=== PATIENT | male | born 1950 | race Caucasian/White ===

== ENCOUNTER → 2017-01-11 | Outpatient (CLI) | payer MEDICARE, BC, OTHER ==
[2017-01-11 08:03] LABS: EKG EKG PERFORMED
[2017-01-11 08:32] LABS: CH 31.6; CHCM 33.9; HCT 45.2 % (39.0-53.0); HDW 2.46; MCH 31.1 pg (25.0-35.0); MCHC 33.3 g/dL (31.0-37.0); MCV 93.6 fL (80.0-100.0); Mean Platelet Volume 6.9; RBC 4.83 m/uL (4.30-5.90); RDW 13.4 % (11.5-15.5)
[2017-01-11 08:41] LABS: INR 1.1 (<1.1); Partial Thromboplastin Time 24.3 sec (22.0-30.0); Prothrombin Time 11.2 sec (9.0-12.0)
[2017-01-11 08:42] LABS: ALT 29 U/L (21-72); AST 24 U/L (17-59); Alkaline Phosphatase 56 U/L (38-126); Anion Gap 8 mmol/L; Blood Urea Nitrogen 16 mg/dL (9-20); Calcium 9.2 mg/dL (8.4-10.2); Carbon Dioxide 28 mmol/L (22-30); Chloride 106 mmol/L (98-107); Glucose 93 mg/dL (74-99); Non-African American GFR(MDRD) >60 (>60 ml/min/1.73 sqM); Potassium 4.4 mmol/L (3.5-5.1); Sodium 142 mmol/L (137-145); Total Bilirubin 0.7 mg/dL (0.2-1.3); Total Protein 6.4 g/dL (6.3-8.2)
[2017-01-11 09:30] LABS: Appearance,Urine Clear (Clear); Bilirubin,Urine Negative (Negative); Glucose,Urine (UA) Negative (Negative); Ketones,Urine Negative (Negative); Leukocyte Esterase,Urine Negative (Negative); Mucus,Urine Few /hpf; Nitrite,Urine Negative (Negative); Particle Count 4023; Protein,Urine Trace (Negative); RBC,Urine 10 /hpf (0-5); Specific Gravity,Urine 1.022 (1.001-1.035); UA Billing (MACRO vs. MICRO) MICRO; Urobilinogen,Urine <2.0 mg/dL (<2.0); WBC,Urine 1 /hpf (0-5)
== END ==
LOC: LABWHC1 07:18
PROVIDERS: ATTEND Orthopaedic Surgery
DX: Z01.818 Encounter for other preprocedural examination (principal); Z79.01 Long term (current) use of anticoagulants
CPT/HCPCS: 36415; 80053; 81001; 85027; 85610; 85730; 86850; 86900; 86901; 87070; 93005

== ENCOUNTER 2017-01-23 07:18 | Inpatient (IN) | payer MEDICARE, BC, OTHER ==
[2017-01-18 15:25] VITALS: BMI 30.1
[~2017-01-23 07:18] MED LIST: ACETAMINOPHEN TAB 500 MG TAB PO ONE; DEXAMETHASONE SOD PHOSPHATE 10 MG/ML 1 ML VIAL IV ONE; HYDROmorphone 1 MG/ML 1 ML SYRINGE IVP PRN; MELOXICAM 7.5 MG TAB PO ONE; ONDANSETRON 4 MG/2 ML VIAL IVP ONE; TRANEXAMIC ACID 1,000 MG in SODIUM CHLORIDE 0.9% 100 ML IVPB ONE; ceFAZolin 2 GM in SODIUM CHLORIDE 0.9% 100 ML IVPB ONE
[2017-01-23] MEDS ORDERED: LIDOCAINE 1% 20 ML VIAL (10MG/ML) FOR IV START INTRADERMA ONE (08:13)
[2017-01-23] MEDS: LACTATED RINGERS 1,000 ML IV SCH (08:14)
[2017-01-23] MEDS ORDERED: PROPOFOL 10 MG/ML 20 ML VIAL IV ONE (09:36)
[2017-01-23] MEDS ORDERED: SODIUM CHLORIDE 0.9% 100 ML BAG ONE (09:36)
[2017-01-23] MEDS ORDERED: PHENYLEPHRINE-0.9% NACL SYG 1 MG/10 ML SYRINGE ONE (09:36)
[2017-01-23] MEDS ORDERED: MIDAZOLAM 2 MG/2 ML VIAL ONE (09:36)
[2017-01-23] MEDS ORDERED: fentaNYL (PF) 50 MCG/ML 2 ML AMP ONE (09:36)
[2017-01-23] MEDS ORDERED: SODIUM CHLORIDE 0.9% IRRIG 1,000 ML BTL IRRIGATION ONE (09:36)
[2017-01-23] MEDS ORDERED: HEPARIN SODIUM,PORCINE 10,000 UNIT/ML 1 ML VIAL ONE (09:36)
[2017-01-23] MEDS ORDERED: ceFAZolin 3,000 MG in SODIUM CHLORIDE 0.9% IRRIGATIO 3,000 ML IRRIGATION ONE (09:36)
[2017-01-23] MEDS ORDERED: TRANEXAMIC ACID 1,000 MG/10 ML VIAL ONE (09:36)
[2017-01-23] MEDS: ROPIVACAINE 246.25 MG, EPINEPHrine 0.5 MG, KETOROLAC 30 MG, cloNIDine HCL/PF 80 MCG, WA... MISCELLANE ONE ×10 (10:06→11:01)
[2017-01-23] MEDS ORDERED: LACTATED RINGERS 1,000 ML IV ONE (11:23)
--- NOTE | 2017-01-23 11:28 | P.OP ---
Date of Procedure: 01/23/17 Preoperative Diagnosis: Severe osteoarthritis left hip Postoperative Diagnosis: Severe osteoarthritis left hip Procedure(s) Performed: Left total hip arthroplasty with a direct anterior approach Implants: Asher and nephew Polarstem size 6 standard Asher & Nephew R3, 3 hole acetabular shell, 54 mm Asher [employer] Nephew reflection 6.5 mm cancellus screw, 20 mm 2 Asher [employer] Nephew R3, XLPE 20 acetabular liner Asher & Nephew Oxinium femoral head 36 m, -3 All components were press-fit. The articulation is ceramic on polyethylene. Anesthesia: spinal Surgeon: Javier Gilmore Poultry Service Technician #1: Kailyn Garcia Poultry Service Technician #2: Joie Cloud Estimated Blood Loss (ml): 135 (50cc returned with cell saver) Pathology: other (Femoral head) Condition: stable Disposition: PACU Indications for Procedure: After failure of conservative treatment we discussed the surgical and nonsurgical treatment options at length. Patient wishes to proceed with a total hip arthroplasty with a direct anterior approach. Complications specific to this procedure were discussed at length, including but not limited to infection, leg length discrepancy, dislocation, and nerve injury. Patient is aware of all these complications and informed consent was obtained Operative Findings: The operative findings are consistent with severe osteoarthritis of the left hip Description of Procedure: Patient was seen and evaluated in the preoperative area, consent was reviewed, and the surgical site was marked with a skin marker. Patient was then brought to the operating room and given prophylactic antibiotics intravenously. 1 g of Tranexamic acid was also given. A spinal anesthetic was administered by the anesthesia department. The patient was then placed on the Monroe table with the bony prominences well-padded. The hip area was then prepped and draped in usual sterile fashion. A universal timeout was then performed, which confirmed the patient's name, surgical site, ALLERGIES, and procedure being performed. Next the incision site was located at 1 cm distal and 1 cm lateral to the anterior superior iliac spine. The skin and subcutaneous tissues were sharply incised. Incision was carefully dissected down to the fascia overlying the tensor fascia brandin muscle. This fascia was then incised in line with the incision. Next, using blunt finger dissection, the tensor fascia brandin muscle was dissected off its investing fascia. The muscle was then carefully retracted laterally with a cobra retractor over the lateral neck of the femur. Next, the circumflex vessels were identified and cauterized using the AquaMantis device. The anterior hip capsule was then exposed. The capsule was then opened and an inverted T fashion. Retention sutures were placed in the inferior arms of the capsule. Cobra retractors were then placed intracapsularly. The proximal femur was then visualized. The femoral neck was then osteotomized appropriate level above the lesser trochanter. Small amount of traction was placed with the Monroe table. A small wedge of bone was then removed from the remaining femoral head. Next, using a corkscrew femoral head was easily removed from the acetabulum. On gross visual inspection, the femoral head had complete loss of articular cartilage in multiple periarticular osteophytes. Attention was then turned to the acetabulum. the acetabulum was exposed and any remaining labrum was excised. Sequential reaming of the acetabulum was performed using fluoroscopic guidance. When the appropriate size was reached, a trial was then placed. The position and fit of the trial was checked with fluoroscopy. The trial was then removed. Then, using fluoroscopic guidance, the final implant was impacted at 20 of anteversion and 40 of abduction, and fully seated in the acetabulum. 2 screws were then placed in the acetabulum. Again fluoroscopy was used to check position of the screws. Next, the liner was then impacted, with a 20 elevated liner located in the anterior superior quadrant. Component locking was confirmed. Attention was then directed to the femur. With the aid of the Monroe table, the femur was externally rotated to approximately 130, extended, and abducted under the opposite leg. A side hook was then placed under the proximal femur, and the side hook elevator was used to elevate the proximal femur. Retractors were then placed. A capsular release was performed, as well as a release of the conjoined tendon, which afforded excellent visualization of the proximal femur. Next, a box osteotome was used to lateralize the proximal femur. A tufter hand was then used to locate the femoral canal. Sequential broaching was then performed with appropriate size which afforded excellent fixation in the proximal femur. A trial was then placed with appropriate head and neck, and the hip was gently reduced with the aid of the Monroe table. Fluoroscopy was then used to check position of the components, as well as to ensure equal leg lengths. The hip was then gently dislocated and the trials were then removed. Final implants were then impacted and the hip was again reduced. Final fluoroscopic x-rays confirmed that the components were in anatomic position, as well as equal leg lengths. The hip was also taken through range of motion, and found to be stable. The hip was then copiously irrigated with antibiotic solution with pulsatile lavage. The hip was then irrigated with Irrisept solution. The soft tissues were then injected with a ropivacaine solution, which consisted of 246.25 mg of ropivacaine, 0.5 mg of epinephrine, 30 mg of Toradol, 80 g of clonidine, and 48.45 mL of sterile water, for a total of 100 mL of fluid injected. A second dose of 1 g of Tranexamic acid was also given. the fascia was then closed with 2-0 strata fix suture. The subcutaneous tissue was closed with 3-0 Vicryl. The subcuticular tissue was closed with 3-0 strata fix suture. The skin was then closed with Dermabond tape. The patient was then transferred to the recovery room in stable condition. The physicians assistant ALBA Abel was required due to the complexity of surgery , and the need for skilled rn surgical for positioning, draping, exposure , retraction, and closure of the wound.
[2017-01-23] MEDS ORDERED: ONDANSETRON 4 MG/2 ML VIAL IVP PRN (11:38)
[2017-01-23] MEDS ORDERED: HYDROmorphone 1 MG/ML 1 ML SYRINGE IVP PRN ×2 (11:38)
[2017-01-23] MEDS ORDERED: DIAZEPAM 5 MG TAB PO PRN ×2 (11:38)
[2017-01-23] MEDS ORDERED: MAGNESIUM HYDROXIDE 2,400 MG/10 ML CUP PO PRN (11:38)
[2017-01-23] MEDS ORDERED: NALOXONE 0.4 MG/ML 1 ML VIAL IV PRN (11:38)
[2017-01-23] MEDS ORDERED: HYDROcodone/APAP 5-325MG 1 EACH TAB PO PRN (11:38)
--- NOTE | 2017-01-23 11:57 | FL ---
EXAMINATION TYPE: FL guidance operating room, XR Hip AP Limited LT DATE OF EXAM: 01/23/2017 11:20 AM COMPARISON: NONE HISTORY: 66-year-old male anterior left hip replacement FINDINGS: 2 anterior intraoperative fluoroscopic images during left hip total arthroplasty. FLUOROSCOPY Fluoroscopy time of 1 minute 11 seconds was used during anterior left hip replacement. 2 image/s doc ument/s the procedure. IMPRESSION: Intraoperative fluoroscopy as above.
--- NOTE | 2017-01-23 12:12 | XR ---
EXAMINATION TYPE: XR Hip Limited LT DATE OF EXAM: 01/23/2017 12:00 PM COMPARISON: NONE HISTORY: 66-year-old male status post hip surgery, assess surgical alignment TECHNIQUE: Single portable AP view FINDINGS: Image shows placement of left total hip arthroplasty. Both the acetabular cup and femoral short stemm ed components of the prosthesis appear well seated without periprosthetic fracture. Alignment grossly anatomic. Soft tissue gas relating to recent operation. IMPRESSION: Uncomplicated postoperative appearance left total hip arthroplasty.
[2017-01-23 12:22] VITALS: RESP 16
[2017-01-23] MEDS: HYDROcodone/APAP 5-325MG 1 EACH TAB PO PRN ×2 (15:06→20:38)
[2017-01-23] MEDS: hydrOXYzine PAMOATE 25 MG CAP PO PRN (15:07)
[2017-01-23] MEDS: ceFAZolin 2 GM in SODIUM CHLORIDE 0.9% 100 ML IVPB SCH (15:08)
[2017-01-23] MEDS: SODIUM CHLORIDE 0.9% 1,000 ML IV SCH (15:09)
[2017-01-23] MEDS: HYDROmorphone 1 MG/ML 1 ML SYRINGE IVP PRN ×2 (15:13→19:05)
[2017-01-23] MEDS ORDERED: TAMSULOSIN 0.4 MG CAP.ER.24H PO SCH (18:45)
[2017-01-23] MEDS ORDERED: SENNOSIDES-DOCUSATE SODIUM 1 EACH TAB PO SCH (21:00)
[2017-01-23] MEDS: ASPIRIN 325 MG TAB PO SCH (21:12)
--- NOTE | 2017-01-23 23:02 | OP ---
DATE OF SERVICE: 01/23/2017 ADDENDUM/CORRECTION TO OPERATIVE NOTE CORRECTED ESTIMATED BLOOD LOSS: 250 mL with 130 mL returned with Cell Saver.
[2017-01-24] MEDS: ceFAZolin 2 GM in SODIUM CHLORIDE 0.9% 100 ML IVPB SCH (00:09)
[2017-01-24] MEDS: HYDROcodone/APAP 5-325MG 1 EACH TAB PO PRN (02:39)
--- NOTE | 2017-01-24 05:38 | CONS ---
DATE OF CONSULTATION: 01/23/2017 REASON FOR CONSULTATION: Medical management requested by Dr. Gilmore. CONSULTATION: This is a 66-year-old patient of Dr. Newton has undergone a left total hip arthroplasty. Chronic stable medical conditions include hyperlipidemia, hypertension, BPH, awaiting prescription for his Flomax and sleep apnea uses a CPAP machine. Patient's is at the bedside. Slight pain at the operative site. No nausea or vomiting. No chest pain. Denies any cardiac history. Sitting up, but not in distress. REVIEW OF SYSTEMS: CONSTITUTIONAL: None. HEENT: None. RESPIRATORY: None. CARDIOVASCULAR: None. GASTROINTESTINAL: None. GENITOURINARY: BPH symptoms. DERMATOLOGICAL: None. HEMATOLOGICAL: None. PSYCHIATRY: None. NEUROLOGICAL: Sleep apnea. Past history of hyperlipidemia, hypertension, osteoarthritis, BPH, obstructive sleep apnea. PAST SURGICAL HISTORY: Orthopedic surgery, tonsillectomy, right foot surgery, bone graft and plates. SOCIAL HISTORY: The patient smoked a pack a day for 20 years; stopped 20 years ago. Drinks a beer a day. . FAMILY HISTORY: Reviewed, noncontributory to presentation. HOME MEDICATIONS: 1. Zocor 40 mg p.o. daily. 2. Zestril 10 mg p.o. daily. 3. Calcium 600 mg p.o. daily. 4. Tylenol 325 p.o. q.h.s. p.r.n. Allergies to SULFA. On examination, temperature 97.3, pulse 58, respiration 16, blood pressure 110/67, pulse ox 97% on room air. GENERAL APPEARANCE: Average build, sitting up in bed, not in distress. EYES: Pupils equal. Conjunctivae normal. HEENT: Oral cavity normal. NECK: JVD not raised. Mass not palpable. RESPIRATORY: Effort normal. Lungs are clear. CARDIOVASCULAR: First and second sounds normal. No edema. ABDOMEN: Soft, nontender. Liver and spleen not palpable. PSYCHIATRY: Alert and oriented x3. Mood and affect normal. INVESTIGATIONS: No blood work from today. ASSESSMENT: 1. Left total hip arthroplasty. 2. Essential hypertension. 3. Hyperlipidemia. 4. Benign prostatic hypertrophy. 5. Obstructive sleep apnea, uses CPAP machine. PLAN: Home medications are resumed. Patient will be prescribed Flomax, also send prescription to his pharmacy. For DVT prophylaxis, patient is on aspirin [address] Gilmore. Care was discussed with patient and . Questions were answered. Thank you Dr. Gilmore.
[2017-01-24 07:24] LABS: Basophils % (A) 0 %; CH 30.9; Eosinophils % (A) 0 %; HCT 37.8 % (39.0-53.0); HDW 2.48; HGB 12.2 gm/dL (13.0-17.5); Luc # (Auto) 0.17; Luc % (Auto) 1; Lymphocytes # (A) 1.1 k/uL (1.0-4.8); Lymphocytes % (A) 9 %; MCH 30.4 pg (25.0-35.0); MCHC 32.4 g/dL (31.0-37.0); MCV 93.8 fL (80.0-100.0); Monocytes # (A) 0.8 k/uL (0-1.0); Monocytes % (A) 7 %; Neutrophils # (A) 10.2 k/uL (1.3-7.7); Neutrophils % (A) 83 %; RBC 4.03 m/uL (4.30-5.90); RDW 13.3 % (11.5-15.5); WBC 12.3 k/uL (3.8-10.6); WBC (Perox) 12.56
[2017-01-24 07:25] VITALS: BP 105/67; PULSE 68; TEMP 97.1
[2017-01-24] MEDS: SODIUM CHLORIDE 0.9% 1,000 ML IV SCH (07:50)
[2017-01-24] MEDS: LACTATED RINGERS 1,000 ML IV SCH (07:54)
[2017-01-24] MEDS: ASPIRIN 325 MG TAB PO SCH (08:58)
[2017-01-24] MEDS: LISINOPRIL 10 MG TAB PO SCH ×2 (08:58→09:02)
[2017-01-24] MEDS ORDERED: MELOXICAM 7.5 MG TAB PO SCH (09:00)
[2017-01-24] MEDS ORDERED: ATORVASTATIN 20 MG TAB PO SCH (09:00)
--- NOTE | 2017-01-24 09:00 | P.DS ---
Providers Date of admission: 01/23/17 07:18 Expected date of discharge: 01/24/17 Attending physician: Javier Gilmore Consults: 01/23/17 11:38 Consult Physician Routine Consulting Provider: Collins Newton Consult Reason/Comments: medical management Do you want consulting provider notified?: Yes 01/23/17 12:31 Consult Physician Routine Consulting Provider: Earle Finn Consult Reason/Comments: medical managment Do you want consulting provider notified?: Already Contacted Primary care physician: Collins Newton - Discharge Diagnosis(es) (1) Status post left hip replacement Current Visit: Yes Status: Acute (2) Primary osteoarthritis of left hip Current Visit: Yes Status: Acute Hospital Course: This is a pleasant 66-year-old gentleman who was last seen in our office with complaints of left hip pain. Patient has known history of degenerative arthritis of the left hip and presented to discuss options. After discussion consideration the patient elected to proceed with a left total hip arthroplasty. Patient was seen preoperatively medically cleared for surgery by his primary care physician. Patient was admitted to [facility] and underwent left total hip arthroplasty. The procedure was performed without complications or sequelae. The patient has done well postoperatively. The patient was seen and evaluated at bedside with Dr. Javier Gilmore. The patient has no new complaints today. The patient appears comfortable and in no acute distress. Dressing is clean dry and intact. Incision is fine with no erythema or active drainage. Calf is soft and nontender. The patient has good foot and ankle motion without difficulty. Lower extremities are neurovascularly intact. The patient is orthopedically stable for discharge if he is doing well with physical therapy today. Pertinent Studies: Laboratory Tests 01/24/17 06:48 WBC 12.3 H RBC 4.03 L Hgb 12.2 L Hct 37.8 L Patient Condition at Discharge: Good Plan - Discharge Summary New Discharge Prescriptions: Aspirin 325 mg PO BID #60 tab Hydrocodone/Acetaminophen [[place] 5-325] 1 - 2 each PO Q6HR PRN #90 tab PRN Reason: Pain Sennosides-Docusate Sodium [Senokot-S] 2 tab PO DAILY #60 tablet Tamsulosin [Flomax] 0.4 mg PO PC-SUPPER #30 cap.er.24h Discharge Medication List Acetaminophen [Tylenol] 325 mg PO HS PRN 01/18/17 [History] Calcium Carbonate [Calcium] 600 mg PO DAILY 01/18/17 [History] Lisinopril [Zestril] 10 mg PO DAILY 01/18/17 [History] Simvastatin [Zocor] 40 mg PO DAILY 01/18/17 [History] Tamsulosin [Flomax] 0.4 mg PO PC-SUPPER #30 cap.er.24h 01/23/17 [Rx] Aspirin 325 mg PO BID #60 tab 01/24/17 [Rx] Hydrocodone/Acetaminophen [[place] 5-325] 1 - 2 each PO Q6HR PRN #90 tab 01/24/17 [Rx] Sennosides-Docusate Sodium [Senokot-S] 2 tab PO DAILY #60 tablet 01/24/17 [Rx] Follow up Appointment(s)/Referral(s): Javier Gilmore DO [Doctor of Osteopathic Medicine] - 2 Weeks Activity/Diet/Wound Care/Special Instructions: Weightbearing as tolerated with walker Daily dressing changes Keep incision clean and dry [facility] with questions or concerns [phone] Discharge Disposition: HOME WITH HOME HEALTH SERVICES
[2017-01-24] MEDS: hydrOXYzine PAMOATE 25 MG CAP PO PRN (13:31)
--- NOTE | 2017-01-24 21:44 | PN ---
DATE OF SERVICE: 01/24/2017 PRESENTING COMPLAINT: Left hip surgery. INTERVAL HISTORY: This patient was seen by me earlier today, doing better, tolerating his diet. Did well with his physical therapy. No chest pain. No shortness of breath. Sitting up. Review of systems done for constitutional, cardiovascular, GI, pulmonary; relevant findings as above. Current medications are reviewed. On examination, temperature 97.1, pulse 68, respirations 16, blood pressure 105/67, pulse ox 97% on room air. GENERAL APPEARANCE: Sitting up, comfortable. EYES: Pupils equal. Conjunctivae normal. NECK: JVD not raised. Mass not palpable. RESPIRATORY: Effort normal. LUNGS: Clear. CARDIOVASCULAR: First and second sounds normal. No edema. ABDOMEN: Soft, nontender. Liver and spleen not palpable. PSYCHIATRY: Alert and oriented. Mood and affect normal. INVESTIGATIONS: White count 12.3, hemoglobin 12.2. ASSESSMENT: 1. Left total hip arthroplasty. 2. Essential hypertension. Currently blood pressure is running a bit on the lower side. 3. Hyperlipidemia. 4. Benign prostatic hypertrophy. 5. Obstructive sleep apnea, uses a continuous positive airway pressure machine. PLAN: Continue ( ). Patient to keep a close eye on his blood pressure. Thank you, Dr. Gilmore. Will follow.
== END 2017-01-24 14:07 | disposition home health service (06) | DRG 470 ==
LOC: 2ORMAIN 07:18 → 3SUR 11:44
PROVIDERS: ADMIT Orthopaedic Surgery; ATTEND Orthopaedic Surgery
PROC: 0SRB04A Replacement of Left Hip Joint with Ceramic on Polyethylene Synthetic Substitute, Uncemented, Open Approach (ICD-10-PCS; principal; 2017-01-23 09:15)
DX: M16.12 Unilateral primary osteoarthritis, left hip (principal); I10 Essential (primary) hypertension; E78.5 Hyperlipidemia, unspecified; Z87.891 Personal history of nicotine dependence; Z88.2 Allergy status to sulfonamides; G47.33 Obstructive sleep apnea (adult) (pediatric); N40.0 Benign prostatic hyperplasia without lower urinary tract symptoms; Z79.899 Other long term (current) drug therapy
CPT/HCPCS: 73501; 85025; 86850; 86891; 86900; 86901; 88300

== ENCOUNTER → 2017-06-21 | Outpatient (CLI) | payer MEDICARE, BC, OTHER ==
--- NOTE | 2017-06-21 12:17 | PN ---
PROGRESS NOTE DATE OF SERVICE: 06/21/2017 A 67-year-old gentleman who had been followed in the sleep center for treatment of obstructive sleep apnea-hypopnea syndrome. Since I saw the patient about 1 year ago, patient continued to use his equipment every night without significant problems getting his supplies on a regular basis. [place] Sleepiness Scale is 9. He sleeps around 6 hours per night. MEDICATIONS: Lisinopril, , simvastatin. Recently patient had left hip replacement. I checked the patient's CPAP unit. CPAP pressure is 11 cm of water. The patient used equipment 26 out of 30 nights for more than 4 hours. Average usage is 6.2 hours. Leak is only 5 L/minute which is normal. Apnea-hypopnea index is 1.8 for the last month. . PHYSICAL EXAMINATION: Patient in no distress. VITAL SIGNS: BP 125/69, HR 64, RR 16, height 5 feet 9-1/2 inches, weight 215, BMI 31.2, temperature 97.4, oxygen saturation at room air 96%. HEENT: PERRLA. EOMI. Oropharynx moderately low position of soft palate. NECK: Supple, no JVD. Thyroid is not palpable. LUNGS: Clear to percussion and to auscultation. Good air exchange. No wheezing or rhonchi. HEART: S1, S2 regular. No murmurs, gallops, or rubs. ABDOMEN: Slightly obese. EXTREMITIES: No clubbing or cyanosis. MEDICAL ASSISTANT INSTRUCTOR: Awake, alert, and oriented X3. Cranial nerves 2 to 7 intact. There is no fasciculation or atrophy. noted. No focal deficits observed. IMPRESSION: 1. Obstructive sleep apnea-hypopnea syndrome on full control with CPAP at 11 cm of water. Patient demonstrated a great compliance with treatment, benefitting from treatment. 2. Slightly short sleep schedule. Patient sometimes take naps in the middle of the day for about 1 hour. 3. Hypertension. 4. Mild obesity. 5. Hyperlipidemia. 6. Status post left hip replacement in January of 2017. PLAN: 1. Continue treatment with CPAP every night for the whole night. 2. We talked about trying to increase time in bed for 7-1/2 hours. 3. No driving if feeling sleepiness. 4. Watching and losing weight. 5. Prescription for all necessary CPAP supplies. Thank you very much for allowing me to participate in management of your patient. Sincerely, Maxwell Rizvi MD, PhD, FAASM Diplomat of [place] [employer] [place] [employer] Assistant Program Director of [facility] [place] MMYOGI / MARIA R: [id number] /
== END ==
LOC: SLEEP 10:13
PROVIDERS: ATTEND Internal Medicine
DX: G47.33 Obstructive sleep apnea (adult) (pediatric) (principal); I10 Essential (primary) hypertension; E66.9 Obesity, unspecified; E78.5 Hyperlipidemia, unspecified; Z96.642 Presence of left artificial hip joint; Z79.899 Other long term (current) drug therapy

== ENCOUNTER → 2018-07-11 | Outpatient (CLI) | payer MEDICARE, BC, OTHER ==
--- NOTE | 2018-07-11 15:30 | PN ---
PROGRESS NOTE DATE OF SERVICE: 07/11/2018 A 68-year-old gentleman who has been followed in the Sleep Center for treatment of obstructive sleep apnea-hypopnea syndrome. Patient successfully continued to use his CPAP equipment every night without significant problem. Likes automatic system of humidity adjustment. No problem with the mask on feeding. [place] Sleepiness Scale today is 5. I checked his CPAP unit. CPAP pressure 11 cm of water. Usage is every night, averaging 6.5 hours. Leak is only 1 L/minute, apnea-hypopnea index absolutely normal 1.4. MEDICATIONS: Lisinopril, simvastatin, finasteride. PHYSICAL EXAM: A gentleman without distress. BP 138/75, HR 68, RR 16, height 5, 9-1/2, weight 228, body mass index 33.1, temperature 97.6, oxygen saturation at room air 96%. OROPHARYNX: Moderately low position of soft palate. Neck Supple, no JVD. Thyroid is not palpable. LUNGS Clear to percussion and to auscultation. Good air exchange. No wheezing or rhonchi. HEART S1, S2 regular. No murmurs, gallops, or rubs. ABDOMEN Soft and nontender. Bowel sounds are present. No organomegaly appreciated. EXTREMITIES No clubbing or cyanosis. TOOL OPERATOR Awake, alert, and oriented X3. Cranial nerves 2 to 7 intact. There is no fasciculation or atrophy. noted. No focal deficits observed. IMPRESSION: 1. Obstructive sleep apnea-hypopnea syndrome. Patient demonstrated great compliance with treatment, benefitting from treatment. 2. Hypertension. 3. Hyperlipidemia. 4. Mild obesity, patient increased his weight around 13 pounds since previous visit. 5. Status post left hip replacement in January of 2017. PLAN: 1. Patient will continue to use CPAP equipment with the same regimen every night for the whole night. 2. Losing weight. 3. Sleep hygiene with regular time bed for at least 8 hours. 4. No driving if feeling sleepiness. 5. Will maintain prescription for all necessary CPAP supplies including heated tube, mask, filters. 6. A followup visit in about 1 year or earlier, if patient has any problems. Thank you very much for allowing me to participate in the management of your patient. Sincerely, Maxwell Rizvi MD, PhD, FAASM Diplomat of [place] [employer] [employer] Clinical Team Lead of [facility] [place] VINC[place] / MARIA R: [phone] /
== END | disposition home or self-care (01) ==
LOC: SLEEP 13:45
PROVIDERS: ATTEND Internal Medicine
DX: G47.33 Obstructive sleep apnea (adult) (pediatric) (principal); I10 Essential (primary) hypertension; E78.5 Hyperlipidemia, unspecified; E66.9 Obesity, unspecified; Z79.899 Other long term (current) drug therapy; Z99.89 Dependence on other enabling machines and devices; Z68.33 Body mass index [BMI] 33.0-33.9, adult; Z96.642 Presence of left artificial hip joint

== ENCOUNTER → 2019-06-26 | Outpatient (CLI) | payer MEDICARE, BC, OTHER ==
--- NOTE | 2019-06-26 18:14 | PN ---
PROGRESS NOTE DATE OF SERVICE: 06/26/2019 69-year-old gentleman has been followed in Sleep Center for treatment of obstructive sleep apnea-hypopnea syndrome. This is a yearly visit. The patient continues to use his equipment every night for the whole night without significant problems related to mask fitting, pressure or humidification. He is getting his CPAP supplies and time and all necessary supplies he received followup. [place] Sleepiness Scale today is 9. I checked CPAP unit. CPAP pressure is 11 cm of water. Usage is every night for more than 4 hours with average usage is 6.6 hours per night. Leak is only 4 L/minute which is great. Apnea-hypopnea index only 1.3, absolutely perfect. MEDICATIONS: Lisinopril, Finasteride, Simvastatin. PHYSICAL EXAM: Patient in no distress. BP 126/68, HR 74, RR 16, height 5 feet 9 inches, weight 222 pounds which is 6 pounds less than one year ago, body mass index 32.6, temperature 97.7, oxygen saturation at room air 96%. Oropharynx: Low position of soft palate, Mallampati 3. Neck Supple, no JVD. Thyroid is not palpable. LUNGS Clear to percussion and to auscultation. Good air exchange. No wheezing or rhonchi. HEART S1, S2 regular. No murmurs, gallops, or rubs. ABDOMEN: Soft and nontender. Bowel sounds are present. No organomegaly appreciated. EXTREMITIES: No clubbing or cyanosis. LINEN FOLDER Awake, alert, and oriented X3. Cranial nerves 2 to 7 intact. There is no fasciculation or atrophy. noted. No focal deficits observed. IMPRESSION: 1. Obstructive sleep apnea-hypopnea syndrome. The patient demonstrated 100% compliance with treatment, benefitting from treatment. 2. Mild obesity, patient lost 6 pounds since previous visit. 3. Hypertension. 4. Hyperlipidemia. 5. Status post left hip replacement in January of 2017. PLAN: 1. Patient will continue to use CPAP equipment every night for the whole night. 2. I will maintain all necessary prescriptions for CPAP supplies including mask, tube, filters. 3. Watching and losing weight. 4. Sleep hygiene with regular time in bed for 7-1/2 to 8 hours. 5. Precautions related to driving. No driving if feeling sleepiness. 6. Follow-up visit in 1 year or earlier if patient has any problems. Thank you very much for allowing me to participate in management of your patient. Sincerely, Maxwell Rizvi MD, PhD, FAASM Diplomat of [place] [employer] [employer]ger of [facility] [place] VINCENZO / MARIA R: [phone] /
== END | disposition home or self-care (01) ==
LOC: SLEEP 14:50
PROVIDERS: ATTEND Internal Medicine
DX: G47.33 Obstructive sleep apnea (adult) (pediatric) (principal); E66.9 Obesity, unspecified; I10 Essential (primary) hypertension; E78.5 Hyperlipidemia, unspecified; Z68.32 Body mass index [BMI] 32.0-32.9, adult; Z99.89 Dependence on other enabling machines and devices; Z96.642 Presence of left artificial hip joint; Z79.899 Other long term (current) drug therapy

== ENCOUNTER → 2020-07-01 | Outpatient (CLI) | payer MEDICARE, OTHER ==
--- NOTE | 2020-07-01 21:16 | SFUN ---
SLEEP CENTER FOLLOW UP NOTE DATE OF SERVICE: 07/01/2020 This patient is a 70-year-old gentleman who has been followed in Sleep Center for treatment of obstructive sleep apnea-hypopnea syndrome. The patient continues to use his CPAP equipment every night for the whole night. He is getting his CPAP supplies on a regular basis, changing his filters and mask. [place] Sleepiness Scale today is 7. I checked his CPAP unit. CPAP pressure is 11 cm of water. The patient is using equipment every night and 27/30 nights for more than 4 hours. Average usage 5.6 hours per night. Leak is 5 L/minute, which is normal. Apnea-hypopnea index was only 1.2, which is perfect. MEDICATIONS: Lisinopril/hydrochlorothiazide 20/12.5 mg once daily, finasteride, simvastatin 20 mg once daily. PHYSICAL EXAMINATION: GENERAL: A pleasant patient in no distress. VITAL SIGNS: BP 128/82, HR 68, RR 15, height 5 feet 9 inches. Weight 226, BMI 33.3, temperature 98.0, oxygen saturation at room air 95%. HEENT: PERRLA, EOMI. Evaluation of oropharynx showed tongue protrudes midline. Low position of soft palate. Mallampati III. NECK: Supple. No JVD. Thyroid is not palpable. LUNGS: Clear to percussion and to auscultation. Good air exchange. No wheezing or rhonchi. HEART: S1, S2 regular. No murmurs, gallops or rubs. ABDOMEN: Obese. EXTREMITIES: No clubbing or cyanosis. PAPER SPOOLER: Awake, alert, and oriented X3. Cranial nerves 2 to 7 intact. There is no fasciculation or atrophy. noted. No focal deficits observed. IMPRESSION: 1. Obstructive sleep apnea-hypopnea syndrome. The patient demonstrated great compliance with treatment, benefitting from treatment. 2. Hypertension, under good control with medications. 3. Obesity. 4. Hyperlipidemia. 5. Status post left hip replacement in January of 2017. PLAN: 1. Patient will continue to use PAP equipment every night for the whole night. 2. Sleep hygiene with regular time in bed for at least 7-1/2 to 8 hours. 3. Precautions related to driving. No driving if feeling sleepiness. 4. I will maintain all necessary prescription for PAP supplies including mask, tube, filters. 5. Watching weight. 6. No driving if feeling sleepiness. 7. Follow-up visit in 6 months or earlier if patient has any problems. Thank you very much for allowing me to participate in the management of your patient. Sincerely, Maxwell Rizvi MD, PhD, FAASM Diplomat of [place] [employer] Career Placement Services Counselor of [facility] [place] MMYOGI / MARIA R: [id number] /
== END | disposition home or self-care (01) ==
LOC: SLEEP 10:08
PROVIDERS: ATTEND Internal Medicine
DX: G47.33 Obstructive sleep apnea (adult) (pediatric) (principal); I10 Essential (primary) hypertension; E78.2 Mixed hyperlipidemia; E66.9 Obesity, unspecified; Z96.642 Presence of left artificial hip joint; Z79.3 Long term (current) use of hormonal contraceptives; Z79.899 Other long term (current) drug therapy; Z99.89 Dependence on other enabling machines and devices

== ENCOUNTER → 2020-12-30 | Outpatient (CLI) | payer MEDICARE, OTHER ==
--- NOTE | 2020-12-30 13:51 | SFUN ---
SLEEP CENTER FOLLOW UP NOTE DATE OF SERVICE: 12/30/2020 A 70-year-old gentleman who has been followed in Sleep Center for treatment of obstructive sleep apnea-hypopnea syndrome. The patient continues to use his equipment every night for the whole night. No snoring with the machine. He feels well. [place] Sleepiness Scale is close to border is 9. I checked his CPAP unit. CPAP pressure is 11 cm of water. Usage is 100% of nights more than 4 hours, average 6.2 hours per night. Leak is only 4 L/minute. Apnea-hypopnea index 1.1, which is perfect. MEDICATIONS: Lisinopril hydrochlorothiazide 20/12.5 mg once a day, finasteride, simvastatin 20 mg once a day, cholestyramine once a day. PHYSICAL EXAMINATION: GENERAL: Patient in no distress. VITAL SIGNS: BP 131/77, HR 63, RR 15, height 5 feet 10 inches, weight 220.4, BMI 32.8, temperature 97.0, oxygen saturation 94%. HEENT: PERRLA, EOMI. Oropharynx low position of soft palate. Mallampati 3. NECK: Supple, no JVD. Thyroid is not palpable. LUNGS: Clear to percussion and to auscultation. Good air exchange. No wheezing or rhonchi. HEART: S1, S2 regular. No murmurs, gallops, or rubs. ABDOMEN: Soft and nontender. Bowel sounds are present. No organomegaly appreciated. EXTREMITIES: No clubbing or cyanosis. ASSISTANT CHIEF TRAIN DISPATCHER: Awake, alert, and oriented X3. Cranial nerves 2 to 7 intact. There is no fasciculation or atrophy. noted. No focal deficits observed. IMPRESSION: 1. Obstructive sleep apnea-hypopnea syndrome. Patient demonstrated 100% compliance from treatment, benefitting from treatment. 2. Hyperlipidemia. 3. Hypertension. 4. Obesity. 5. Status post left hip replacement. PLAN: 1. Patient will continue to use PAP equipment every night for the whole night. 2. Sleep hygiene with regular time in bed for at least 7-1/2 to 8 hours. 3. Precautions related to driving. No driving if feeling sleepiness. 4. I will maintain all necessary prescription for PAP supplies including mask, tube, filters. 5. Watching weight. 6. Follow-up visit in 6 months or earlier if patient has any problems. Sincerely, Maxwell Rizvi MD, PhD, FAASM Diplomat of [place] [employer] Board of Internal Medicine Senior Communications Engineer of [facility] [place] MMSHERINL / MARIA R: [id number] /
== END ==
LOC: SLEEP 10:19
PROVIDERS: ATTEND Internal Medicine
DX: G47.33 Obstructive sleep apnea (adult) (pediatric) (principal); E78.5 Hyperlipidemia, unspecified; E66.9 Obesity, unspecified; I10 Essential (primary) hypertension; Z68.32 Body mass index [BMI] 32.0-32.9, adult; Z96.642 Presence of left artificial hip joint; Z79.899 Other long term (current) drug therapy; Z87.891 Personal history of nicotine dependence

== ENCOUNTER → 2021-07-28 | Outpatient (CLI) | payer MEDICARE, OTHER ==
--- NOTE | 2021-07-28 14:39 | SFUN ---
SLEEP CENTER FOLLOW UP NOTE DATE OF SERVICE: 07/28/2021 This 71-year-old gentleman has been followed in Sleep Center for treatment of obstructive sleep apnea-hypopnea syndrome. The patient continues to use his CPAP equipment every night. No snoring. [place] Sleepiness Scale today is 7. I checked his CPAP unit. Range of the pressure is 5 to 15 with average pressure 14.1. Usage is 30/30 nights and 28/30 nights for more than 4 hours, average 6.9 hours ago; great compliance. Leak is only 4 L/minute. Apnea-hypopnea index is 1.2, which is perfect. MEDICATIONS: 1. Simvastatin 40 mg once a day. 2. Lisinopril/hydrochlorothiazide 20/12.5 mg once a day. 3. Finasteride 5 mg once a day. 4. Amitriptyline 25 mg once a day. PHYSICAL EXAMINATION: GENERAL: Pleasant patient in no distress. VITAL SIGNS: BP 122/84, HR 66, RR 14, height 5 feet 9 inches, weight 231.0, temperature 97.4, oxygen saturation at room air 97%. Body mass index 34.1. The patient's weight increased by 11 pounds since previous visit. HEENT: PERRTAMMY, EOMI, evaluation of oropharynx showed tongue protrudes midline. Low position of soft palate; Mallampati III. NECK: Supple, no JVD. Thyroid is not palpable. LUNGS: Clear to percussion and to auscultation. Good air exchange. No wheezing or rhonchi. HEART: S1, S2 regular. No murmurs, gallops, or rubs. ABDOMEN: Soft and nontender. Bowel sounds are present. No organomegaly appreciated. EXTREMITIES: No clubbing or cyanosis. DIRECTOR OF CONTENT AND PROGRAMMING: Awake, alert, and oriented X3. Cranial nerves 2 to 7 intact. There is no fasciculation or atrophy. noted. No focal deficits observed. IMPRESSION: 1. Obstructive sleep apnea-hypopnea syndrome. Patient demonstrated great compliance with treatment, benefitting from treatment. Normal respiration on CPAP. 2. Hypertension. 3. Hyperlipidemia. 4. Obesity. Patient's weight increased by 11 pounds. 5. Status post left hip replacement. PLAN: 1. Patient will continue to use PAP equipment every night for the whole night. 2. Sleep hygiene with regular time in bed for at least 7-1/2 to 8 hours. 3. Precautions related to driving. No driving if feeling sleepiness. 4. I will maintain all necessary prescription for PAP supplies including mask, tube, filters. 5. Watching weight. 6. Follow-up visit in 6 months or earlier if patient has any problems. Thank you very much for allowing me to participate in the management of your patient. Sincerely, Maxwell Rizvi MD, PhD, FAASM Diplomat of [place] [employer] Sleep Medicine Board of [employer] Board of Internal Medicine Product Communications Manager of [facility] [place] MMODL / JOHNNYN: [id number] /
== END ==
LOC: SLEEP 10:55
PROVIDERS: ATTEND Internal Medicine
DX: G47.33 Obstructive sleep apnea (adult) (pediatric) (principal); I10 Essential (primary) hypertension; E78.5 Hyperlipidemia, unspecified; E66.9 Obesity, unspecified; Z96.642 Presence of left artificial hip joint; Z68.34 Body mass index [BMI] 34.0-34.9, adult; Z79.899 Other long term (current) drug therapy; Z88.2 Allergy status to sulfonamides; Z87.891 Personal history of nicotine dependence

== ENCOUNTER 2021-07-29 09:54 | Day surgery (SDC) | payer MEDICARE, OTHER ==
[2021-07-27 17:13] VITALS: BMI 32.3
[~2021-07-29 09:54] MED LIST changes: -ACETAMINOPHEN TAB 500 MG TAB PO ONE; -DEXAMETHASONE SOD PHOSPHATE 10 MG/ML 1 ML VIAL IV ONE; -HYDROmorphone 1 MG/ML 1 ML SYRINGE IVP PRN; +LACTATED RINGERS 1,000 ML IV SCH; -MELOXICAM 7.5 MG TAB PO ONE; -ONDANSETRON 4 MG/2 ML VIAL IVP ONE; -TRANEXAMIC ACID 1,000 MG in SODIUM CHLORIDE 0.9% 100 ML IVPB ONE; -ceFAZolin 2 GM in SODIUM CHLORIDE 0.9% 100 ML IVPB ONE
[2021-07-29 11:15] VITALS: TEMP 97.5
[2021-07-29] MEDS ORDERED: LIDOCAINE 1% (10MG/ML) FOR IV START INTRADERMA ONE (11:26)
[2021-07-29] MEDS ORDERED: PROPOFOL 10 MG/ML 20 ML VIAL IV ONE (11:39)
[2021-07-29] MEDS ORDERED: LIDOCAINE 1% INJ 10MG/ML (20 ML MDV) ONE (11:39)
--- NOTE | 2021-07-29 12:01 | P.PCN ---
Date of Procedure: 07/29/21 Procedure(s) Performed: BRIEF HISTORY: Patient is a 71-year-old pleasant male scheduled for an elective colonoscopy as a part of screening for colorectal neoplasia. PROCEDURE PERFORMED: Colonoscopy snare polypectomy. PREOPERATIVE DIAGNOSIS: Screening for colon cancer. IV sedation per Anesthesia. PROCEDURE: After informed consent was obtained, the patient, was brought into the endoscopy unit. IV sedation was administered by Anesthesia under continuous monitoring. Digital rectal examination was normal. Initially the Olympus CF-160 flexible video colonoscope was then inserted in the rectum, gradually advanced into the cecum without any difficulty. Careful examination was performed as the scope was gradually being withdrawn. Ileocecal valve and the appendiceal orifice were visualized and appeared normal. Prep was excellent. Mucosa of the cecum, appeared normal. In the ascending colon there was a 5 mm sessile polyp removed by snare polypectomy. Rest of the ascending colon, transverse colon, descending colon, sigmoid colon, and rectum appeared normal. Scattered sigmoid diverticulosis seen. Retroflexion was performed in the rectum and no lesions were seen. The patient tolerated the procedure well. IMPRESSION: 5 millimeters ascending colon polyp status post polypectomy Scattered sigmoid diverticulosis RECOMMENDATIONS: Findings of this examination were discussed with the patient as well as his family. He was advised to follow with the biopsy results. If the biopsy reveals adenoma he can have a repeat colonoscopy in 5 years..
[2021-07-29 12:05] VITALS: RESP 16
[2021-07-29 12:18] VITALS: BP 152/93; PULSE 62
== END 2021-07-29 12:34 | disposition home or self-care (01) ==
LOC: ORWHC2ENDO 09:54
PROVIDERS: ATTEND Internal Medicine Gastroenterology
DX: Z12.11 Encounter for screening for malignant neoplasm of colon (principal); D12.2 Benign neoplasm of ascending colon; K57.30 Diverticulosis of large intestine without perforation or abscess without bleeding; G47.33 Obstructive sleep apnea (adult) (pediatric); I10 Essential (primary) hypertension; N40.0 Benign prostatic hyperplasia without lower urinary tract symptoms; E78.5 Hyperlipidemia, unspecified; Z79.899 Other long term (current) drug therapy; Z88.2 Allergy status to sulfonamides
CPT/HCPCS: 88305; 45385; J2001; J2704

== ENCOUNTER → 2022-07-19 | Outpatient (CLI) | payer MEDICARE, OTHER ==
--- NOTE | 2022-07-19 11:30 | P.PN ---
Subjective DATE: 07/19/2022 FOLLOW UP VISIT. Patient with obstructive sleep apnea hypopnea syndrome return to sleep center for follow-up visit. Information from previous visit have been reviewed. Patient is using PAP equipment every night for the whole night, getting PAP supplies in time. The patient does not have significant problems with the mask, PAP unit and humidification. [place] sleepiness scale is 7, which is normal. I checked PAP unit. PAP unit pressure is 5-15, average 12.7 cm H2O. Usage is 100 % for more then 4 hours, average 6.5 hours per night. Leak is 4 l/m, which is in acceptable range. Apnea Hypopnea Index is 1.1, which is normal. MEDICATIONS:1. Lisinopril/hydrochlorothiazide 20/12.5 mg once a day 2. Simvastatin 40 mg once a day 3. Finasteride 5 mg once a day During physical exam: GENERAL: A pleasant patient without any distress. VITAL SIGNS: BP 123/83, HR 83, RR 14 , weight 211.2, patient lost around 20 pounds, temperature 97.0, oxygen saturation at room air 97 % . HEENT: PERRLA, EOMI.low position of soft palate, Mallapati 3 . NECK: Supple. No JVD. LUNGS: Clear to percussion and to auscultation. Good air exchange. No wheezing or rhonchi. HEART: S1, S2 regular. ABDOMEN: Soft and nontender.[] EXTREMITIES: No clubbing or cyanosis. HOT METAL CHARGER: Awake, alert, and oriented x3. No focal deficit. Impressions: 1. Obstructive sleep apnea-hypopnea syndrome. Patient demonstrated great compliance with treatment, benefiting from treatment. 2. Hypertension. 3. Hyperlipidemia. 4. Status post left hip replacement. Plan: 1. Continue using PAP equipment every night for the whole night. 2. To change air filter at least 1-2 times per month. 3. PAP unit should stay lower then position of the head. 4. Advised patient to remove all remaining water from humidifier canister daily and make it dry after each usage. Refill canister with fresh distilled water before each usage. 5. Sleep hygiene with regular time in bed for at least 8 hours. 6. Precautions related to driving. No driving if feel any sleepiness. 7. I will maintain prescription for PAP supplies including mask, tube, filters. 8. Follow up visit in 6 months or earlier if patient has any problems. 9. Watching weight. Thank you very much for allowing me to participate in the management of your patient. Maxwell Rizvi MD, PhD, FAASM. Diplomat of [place] Board of Sleep Medicine, Sleep Medicine Board by [place] [employer] Medicine [address] Freight of [facility] [place]
== END ==
LOC: SLEEP 10:27
PROVIDERS: ATTEND Internal Medicine
DX: G47.33 Obstructive sleep apnea (adult) (pediatric) (principal); Z99.89 Dependence on other enabling machines and devices; I10 Essential (primary) hypertension; E78.5 Hyperlipidemia, unspecified; Z96.642 Presence of left artificial hip joint; Z88.2 Allergy status to sulfonamides; Z87.891 Personal history of nicotine dependence

== ENCOUNTER → 2022-11-06 | Outpatient (CLI) | payer MEDICARE, OTHER | END | disposition home or self-care (01) | LOC: LABWHC1 10:07 | PROVIDERS: ATTEND Family Medicine | DX: Z53.9 Procedure and treatment not carried out, unspecified reason (principal) ==

== ENCOUNTER → 2022-11-06 | Outpatient (CLI) | payer MEDICARE, OTHER ==
[2022-11-06 11:57] LABS: Partial Thromboplastin Time 22.3 sec (22.0-30.0); Prothrombin Time 10.7 sec (9.0-12.0)
[2022-11-06 18:28] LABS: Basophils # (A) 0.09 X 10*3/uL (0.00-0.10); Basophils % (A) 1.4 %; Eosinophils # (A) 0.24 X 10*3/uL (0.04-0.35); Eosinophils % (A) 3.7 %; HCT 46.1 % (39.6-50.0); Immature Grans, Automated 0.3 %; Lymphocytes # (A) 1.66 X 10*3/uL (0.90-5.00); Lymphocytes % (A) 25.9 %; MCH 30.7 pg (27.0-32.0); MCHC 32.5 g/dL (32.0-37.0); MCV 94.3 fL (80.0-97.0); Mean Platelet Volume 10.1 fL (9.5-12.2); Monocytes # (A) 0.56 X 10*3/uL (0.20-1.00); Monocytes % (A) 8.7 %; NRBC Per 100 WBC 0 /100 WBCS (0.0-0.0); Neutrophils # (A) 3.84 X 10*3/uL (1.80-7.70); Platelet Count 207 X 10*3/uL (140-440); RBC 4.89 X 10*6/uL (4.40-5.60); RDW 13.6 % (11.5-14.5); WBC 6.41 X 10*3/uL (4.50-10.00)
[2022-11-06 19:03] LABS: African American GFR (CKD) 102.7 (60.0-200.0); Albumin 4.5 g/dL (3.8-4.9); Albumin/Globulin Ratio 2.25 (1.60-3.17); Anion Gap 11.8 mmol/L (10.00-18.00); BUN/Creat Ratio 17.25 Ratio (12.00-20.00); Blood Urea Nitrogen 13.8 mg/dL (9.0-27.0); Calcium 9.9 mg/dL (8.7-10.3); Carbon Dioxide 26.2 mmol/L (20.0-27.5); Non-African American GFR(CKD) 88.6 (60.0-200.0); Potassium 4.2 mmol/L (3.5-5.5); Total Bilirubin 0.3 mg/dL (0.30-1.20); Total Protein 6.5 g/dL (6.2-8.2)
[2022-11-06 23:09] LABS: Appearance,Urine Clear (Clear); Bilirubin,Urine Negative (Negative); Blood,Urine Negative (Negative); Color,Urine Yellow (Yellow); Ketones,Urine Negative (Negative); Nitrite,Urine Negative (Negative); PH, Urine 6.5 (5.0-8.0); Specific Gravity,Urine 1.015 (1.001-1.030); Urobilinogen,Urine 0.2 (0.2,1.0)
== END | disposition home or self-care (01) ==
LOC: LABPAT 10:03
PROVIDERS: ATTEND Orthopaedic Surgery Sports Medicine
DX: Z01.812 Encounter for preprocedural laboratory examination (principal); M19.011 Primary osteoarthritis, right shoulder
CPT/HCPCS: 80053; 81003; 85025; 85610; 85730; 87070; 93005

== ENCOUNTER → 2022-12-27 | Outpatient (CLI) | payer MEDICARE, OTHER ==
--- NOTE | 2022-12-27 08:32 | US ---
EXAMINATION TYPE: US prostate transrectal DATE OF EXAM: 12/27/2022 COMPARISON: NONE CLINICAL HISTORY: N13.8. known BPH, on Flomax, no other symptoms This examination was performed using the transrectal probe. EXAM MEASUREMENTS: Gland Size: 3.9 x 4.8 x 2.6cm Volume: 25.7ml Predicted PSA: 3.0 Actual PSA (if available):0.58 Left peripheral zone 8 x 4 mm hypoechoic area. IMPRESSION: There is a 8 x 4 mm heterogenous area within the left posterior peripheral zone. Conside r further evaluation prostate MRI. Findings could represent scarring given PSA of 0.58. Predicted PSA = volume x 0.12 ng/ml Calculated Volume = 0.5236 x L x W x H
== END | disposition home or self-care (01) ==
LOC: RADUSWWP 06:43
PROVIDERS: ATTEND Family Medicine
DX: N13.8 Other obstructive and reflux uropathy (principal); N40.0 Benign prostatic hyperplasia without lower urinary tract symptoms
CPT/HCPCS: 76872

== ENCOUNTER → 2023-07-18 | Outpatient (CLI) | payer MEDICARE, OTHER ==
--- NOTE | 2023-07-18 10:52 | P.PN ---
Subjective DATE: 07/18/2023 FOLLOW UP VISIT. Patient with obstructive sleep apnea hypopnea syndrome return to sleep center for follow-up visit. Information from previous visit have been reviewed. Patient is using PAP equipment every night for the whole night, getting PAP supplies in time. The patient does not have significant problems with the mask, PAP unit and humidification. [place] sleepiness scale is 7, which is normal. I checked information from PAP unit and explained to the patient in details. PAP unit pressure 5-15, average 14.8 cm H2O. Usage is 98 % for more then 4 hours, average 5.8 hours per night. Leak is 0 l/m, which is perfect. Apnea Hypopnea Index is 1.4, which is normal. MEDICATIONS:1. Flomax 0.4 mg once a day 2. Lisinopril/hydrochlorothiazide 20-12.5 mg once a day 3. Simvastatin 40 mg once a day 4. Finasteride 5 mg once a day During physical exam: GENERAL: A pleasant patient without any distress. VITAL SIGNS: BP 144/86, HR 61, RR 16, weight 221.4, temperature 97.4, oxygen saturation at room air 94 % . HEENT: PERRLA, EOMI.low position of soft palate, Mallapati 3. NECK: Supple. No JVD. LUNGS: Clear to percussion and to auscultation. Good air exchange. No wheezing or rhonchi. HEART: S1, S2 regular. ABDOMEN: Soft and nontender.[] EXTREMITIES: No clubbing or cyanosis. ADMITTING MANAGER: Awake, alert, and oriented x3. No focal deficit. Impressions: 1. Obstructive sleep apnea-hypopnea syndrome. Patient demonstrated great compliance with treatment, benefiting from treatment. 2. Hypertension. 3. Hyperlipidemia. 4. Status post left hip replacement. Plan: 1. Continue using PAP equipment every night for the whole night. 2. To change air filter at least 1-2 times per month. 3. PAP unit should stay lower then position of the head. 4. Advised patient to remove all remaining water from humidifier canister daily and make it dry after each usage. Refill canister with fresh distilled water before each usage. 5. Sleep hygiene with regular time in bed for at least 8 hours. 6. Precautions related to driving. No driving if feel any sleepiness. 7. I will maintain prescription for PAP supplies including mask, tube, filters. 8. Watching weight. 9.Follow up visit in 6 months or earlier if patient has any problems. Thank you very much for allowing me to participate in the management of your patient. Maxwell Rizvi MD, PhD, FAASM. Diplomat of [place] Board of Sleep Medicine, Sleep Medicine Board by [place] [employer] of Internal Medicine [employer]umba Instructor of [facility] [place]
== END ==
LOC: 3 N SLEEP 10:23
PROVIDERS: ATTEND Internal Medicine
DX: G47.33 Obstructive sleep apnea (adult) (pediatric) (principal); E78.5 Hyperlipidemia, unspecified; I10 Essential (primary) hypertension; Z79.899 Other long term (current) drug therapy; Z96.642 Presence of left artificial hip joint; Z99.89 Dependence on other enabling machines and devices; Z88.2 Allergy status to sulfonamides; Z91.018 Allergy to other foods; Z87.891 Personal history of nicotine dependence
CPT/HCPCS: 99212

== ENCOUNTER → 2024-01-17 | Outpatient (CLI) | payer MEDICARE, OTHER ==
[2024-01-17 16:39] VITALS: BP 161/77; PULSE 56; RESP 18; TEMP 97.6
--- NOTE | 2024-01-17 17:01 | P.PN ---
Subjective DATE: 01/17/2024 FOLLOW UP VISIT. Patient with obstructive sleep apnea hypopnea syndrome return to sleep center for follow-up visit. Information from previous visit have been reviewed. This is first visit after patient received new CPAP unit. Patient is using PAP equipment every night for the whole night, getting PAP supplies in time. The patient does not have significant problems with the mask, PAP unit and humidification. [place] sleepiness scale is slightly increased to 11 . I checked information from PAP unit. PAP unit pressure 5-15, average 14.7 cm H2O. Usage is 100% for more then 4 hours, average 6.75 hours per night. Leak is 0.7 l/m, which is perfect. Apnea Hypopnea Index is 3.0, which is normal. MEDICATIONS:1. Simvastatin 40 mg once a day 2. Flomax 0.4 mg once a day 3. Lisinopril/hydrochlorothiazide 12-12.5 mg once a day 4. Finasteride 5 mg once a day During physical exam: GENERAL: A pleasant patient without any distress. VITAL SIGNS: Please see below, weight 222.6 pounds. HEENT: PERRLA, EOMI.low position of soft palate, Mallapati 3 . NECK: Supple. No JVD. LUNGS: Clear to percussion and to auscultation. Good air exchange. No wheezing or rhonchi. HEART: S1, S2 regular. ABDOMEN: Soft and nontender.[] EXTREMITIES: No clubbing or cyanosis. BENCH HAND: Awake, alert, and oriented x3. No focal deficit. Impressions: 1. Obstructive sleep apnea-hypopnea syndrome. Patient demonstrated great compliance with treatment, benefiting from treatment. 2. Hypertension. 3. Hyperlipidemia. 4. Status post left hip replacement. 5. BPH. Plan: 1. Continue using PAP equipment every night for the whole night. 2. To change air filter at least 1-2 times per month. 3. PAP unit should stay lower then position of the head. 4. Advised patient to remove all remaining water from humidifier canister daily and make it dry after each usage. Refill canister with fresh distilled water before each usage. 5. Sleep hygiene with regular time in bed for at least 8 hours. 6. Precautions related to driving. No driving if feel any sleepiness. 7. I will maintain prescription for PAP supplies including mask, tube, filters. 8. Follow up visit in 6 months or earlier if patient has any problems. 9. Watching weight. Thank you very much for allowing me to participate in the management of your patient. Maxwell Rizvi MD, PhD, FAASM. Diplomat of [place] Board of Sleep Medicine, Sleep Medicine Board by [place] Board [employer] Internal Medicine Table Worker of [facility] [place] Objective - Vital Signs Vital signs: Vital Signs Temp 97.6 F 01/17/24 16:16 Pulse 56 L 01/17/24 16:16 Resp 18 01/17/24 16:16 BP 161/77 01/17/24 16:16 Pulse Ox 97 01/17/24 16:16 FiO2
== END ==
LOC: 3 N SLEEP 15:26
PROVIDERS: ATTEND Internal Medicine
DX: G47.33 Obstructive sleep apnea (adult) (pediatric) (principal); I10 Essential (primary) hypertension; E78.5 Hyperlipidemia, unspecified; N40.0 Benign prostatic hyperplasia without lower urinary tract symptoms; Z96.642 Presence of left artificial hip joint; Z79.899 Other long term (current) drug therapy; Z99.89 Dependence on other enabling machines and devices; Z88.2 Allergy status to sulfonamides; Z91.018 Allergy to other foods; Z87.891 Personal history of nicotine dependence
CPT/HCPCS: 99212

== ENCOUNTER → 2024-07-03 | Outpatient (CLI) | payer MEDICARE, OTHER ==
--- NOTE | 2024-07-03 17:30 | CT ---
EXAMINATION TYPE: CT abdomen pelvis wo con CT DLP: 915.6 mGycm, Automated exposure control for dose reduction was used. DATE OF EXAM: 07/03/2024 3:45 PM COMPARISON: None CLINICAL INDICATION:Male, 74 years old with history of R10.32 AB PAIN; LLQ abdominal pain x1 month TECHNIQUE: Standard CT of the abdomen and pelvis without IV or oral contrast. Lack of IV or oral co ntrast limits evaluation of solid and hollow organ viscera. Coronal and sagittal reformats were perfo rmed. FINDINGS: LOWER CHEST: Bilateral lower lobe linear atelectasis. RCA coronary calcifications. ABDOMEN LIVER: Scattered hepatic cysts with largest measuring up to 3.4 cm. GALLBLADDER AND BILE DUCTS: Unremarkable. PANCREAS: Unremarkable. SPLEEN: Unremarkable. ADRENAL GLANDS: Unremarkable. KIDNEYS AND URETERS: No evidence of hydronephrosis or renal calculus. Exophytic right renal upper isaac e 3.2 cm cyst. Mild bilateral perinephric fat stranding. PELVIS BLADDER: Unremarkable REPRODUCTIVE: Borderline enlarged prostate gland measuring 4.9 cm in transverse dimension. ABDOMEN & PELVIS STOMACH AND BOWEL: Stomach and duodenum are unremarkable. No focal bowel wall thickening or surroundi ng inflammatory changes. The appendix is within normal limits. Extensive distal colonic diverticulosi s without definitive evidence for acute diverticulitis. No stranding fluid collections. No evidence o f bowel obstruction. PERITONEUM: No evidence of pneumoperitoneum or free fluid. VASCULATURE: Mild to moderate atherosclerotic calcifications are present throughout the abdominal aor ta and its branches. No evidence of aortic aneurysm. MUSCULOSKELETAL: No acute osseous abnormalities. Postsurgical changes from left total hip arthroplast y. This creates streak artifact which limits evaluation. Grade 1 anterolisthesis of L4 on L5 without evidence of pars defects. Multilevel degenerative disease most pronounced at L5-S1. LYMPH NODES: No gross evidence for lymphadenopathy. SOFT TISSUE/ABDOMINAL WALL: Small fat filled umbilical hernia. IMPRESSION: 1. No acute abdominal/pelvic process within limitations of a noncontrast exam. 2. Extensive distal colonic diverticulosis without definitive evidence for acute diverticulitis. [facility], , 07/03/2024 5:27 PM
== END ==
LOC: RADCTMAIN 15:19
PROVIDERS: ATTEND Nurse Practitioner Adult Health
CPT/HCPCS: 74176

== ENCOUNTER → 2024-07-30 | Outpatient (CLI) | payer MEDICARE, OTHER ==
[2024-07-30 10:40] VITALS: BP 133/84; PULSE 61; RESP 16; TEMP 97.4
--- NOTE | 2024-07-30 11:09 | P.PROGSL ---
Subjective DATE: 07/30/2024 FOLLOW UP VISIT. Patient with obstructive sleep apnea hypopnea syndrome return to sleep center for follow-up visit. Information from previous visit have been reviewed. Patient is using PAP equipment every night for the whole night, getting PAP supplies in time. The patient does not have significant problems with the mask, PAP unit and humidification. [place] sleepiness scale is 8, which is normal. I checked information from PAP unit. PAP unit pressure 5-15, average 14.3 cm H2O. Usage is 93% for more then 4 hours, average 6.25 hours per night. Leak is 3.5 l/m, which is in acceptable range. Apnea Hypopnea Index is 2.5, which is normal. MEDICATIONS have been reviewed, please see below. During physical exam: GENERAL: A pleasant patient without any distress. VITAL SIGNS: Please see below, weight is 221.2 lbs. HEENT: PERRLA, EOMI.low position of soft palate, Mallapati 3. NECK: Supple. No JVD. LUNGS: Clear to percussion and to auscultation. Good air exchange. No wheezing or rhonchi. HEART: S1, S2 regular. ABDOMEN: Soft and nontender. Slightly obese EXTREMITIES: No clubbing or cyanosis. LIEUTENANT FIRE FIGHTER: Awake, alert, and oriented x3. No focal deficit. Impressions: 1. Obstructive sleep apnea-hypopnea syndrome. Patient demonstrated great compliance with treatment, benefiting from treatment. 2. Mild obesity, BMI 32.6. 3. Hypertension. 4. Hyperlipidemia. 5. Status post left hip replacement. 6. BPH. Plan: 1. Continue using PAP equipment every night for the whole night. 2. Sleep hygiene with regular time in bed for at least 7.5-8 hours 3. PAP unit should stay lower then position of the head. 4. Advised patient to remove all remaining water from humidifier canister daily and make it dry after each usage. Refill canister with fresh distilled water before each usage. 5. Watching weight. 6. Precautions related to driving. No driving if feel any sleepiness. 7. I will maintain prescription for PAP supplies including mask, tube, filters. 8. Follow up visit in 8 months or earlier if patient has any problems. Thank you very much for allowing me to participate in the management of your patient. Maxwell Rizvi MD, PhD, FAASM. Diplomat of [place] [employer] Sleep Medicine, Sleep Medicine Board by [place] [employer] Education And Outreach Coordinator of [facility] [place] Objective - Vital Signs Vital Signs: Vital Signs Temp 97.4 F L 07/30/24 10:40 Pulse 61 07/30/24 10:40 Resp 16 07/30/24 10:40 BP 133/84 07/30/24 10:40 Pulse Ox 95 07/30/24 10:40 FiO2 Intake & Output 07/29/24 07/30/24 07/30/24 18:59 06:59 18:59 Weight 100.301 kg Home Medications: Home Medications Medication Instructions Recorded Confirmed Type Simvastatin [Zocor] 40 mg PO DAILY 01/18/17 07/30/24 History Finasteride [Proscar] 5 mg PO DAILY 07/27/21 11/17/22 History Lisinopril-Hctz 20-12.5 mg 1 tab PO DAILY 07/27/21 07/30/24 History [Zestoretic 20-12.5] Docusate [Colace] 100 mg PO BID #60 capsule 11/24/22 Rx Doxycycline Hyclate 100 mg PO BID #10 tab 11/24/22 Rx HYDROcodone/APAP 7.5-325MG [[place] 1 - 2 each PO Q6HR PRN #42 tab 11/24/22 Rx 7.5-325] Ondansetron [Zofran] 4 mg PO Q8HR PRN #21 tab 11/24/22 Rx Eluxadoline [Viberzi] 100 mg PO BID-W/MEALS 07/30/24 07/30/24 History Glucosamine/Chondr Dougherty A Sod [Osteo 1 each PO DAILY 07/30/24 07/30/24 History Bi-Flex Caplet] Magnesium Oxide [Magnesium] 500 mg PO DAILY 07/30/24 07/30/24 History Tamsulosin HCl [Flomax] 0.4 mg PO DAILY 07/30/24 07/30/24 History
== END ==
LOC: 3 N SLEEP 10:00
PROVIDERS: ATTEND Internal Medicine
DX: G47.33 Obstructive sleep apnea (adult) (pediatric) (principal); E66.9 Obesity, unspecified; I10 Essential (primary) hypertension; E78.5 Hyperlipidemia, unspecified; N40.0 Benign prostatic hyperplasia without lower urinary tract symptoms; Z96.642 Presence of left artificial hip joint; Z68.32 Body mass index [BMI] 32.0-32.9, adult; Z99.89 Dependence on other enabling machines and devices; Z88.2 Allergy status to sulfonamides; Z91.018 Allergy to other foods; Z91.011 Allergy to milk products; Z79.899 Other long term (current) drug therapy; Z87.891 Personal history of nicotine dependence
CPT/HCPCS: 99212

== ENCOUNTER → 2024-07-31 | Outpatient (CLI) | payer MEDICARE, OTHER ==
--- NOTE | 2024-07-31 12:03 | XR ---
EXAMINATION TYPE: XR pelvis AP view DATE OF EXAM: 07/31/2024 11:21 AM COMPARISON: None. CLINICAL INDICATION: Male, 74 years old with history of R10.9 abdominal pain, lower abdominal pain TECHNIQUE: XR pelvis AP view view(s) obtained. FINDINGS: There is a normal bowel gas pattern. No acute fractures evident. Mild degenerative joint changes are present. Symphysis pubis and sacroili ac joints are normal Left hip prosthesis is present. IMPRESSION: 1. Unremarkable AP pelvis [facility], , 07/31/2024 12:01 PM
--- NOTE | 2024-07-31 12:22 | XR ---
EXAMINATION TYPE: XR abdomen complete w decub DATE OF EXAM: 07/31/2024 11:21 AM COMPARISON: None. CLINICAL INDICATION: Male, 74 years old with history of R10.9 unspecified abdominal pain, TECHNIQUE: XR abdomen complete w decub 3 view(s) obtained. FINDINGS: There is nonspecific bowel gas pattern. Small bowel gas and colonic bowel gas is present. No suspicio us air-fluid levels or differential air-fluid levels are present. Right upper quadrant small bowel lo ops at the upper limits of normal for size. No mass effect is evident Psoas margins are normal. No organomegaly is present. No suspicious calcifications. No free air evident. Left hip prosthesis is present. Degenerative changes are at the right hip IMPRESSION: 1. There may be some mild small bowel ileus present. No obstruction identified. No free air is eviden t [facility], , 07/31/2024 12:19 PM
== END | disposition home or self-care (01) ==
LOC: RADXRMAIN 10:57
PROVIDERS: ATTEND Internal Medicine Gastroenterology
DX: R10.9 Unspecified abdominal pain (principal)
CPT/HCPCS: 72170; 74021

== ENCOUNTER → 2025-04-06 | Outpatient (CLI) | payer MEDICARE, OTHER ==
[2025-04-06 15:45] LABS: ALT 29 U/L (10-49); AST 30 U/L (14-35); Albumin 4.3 g/dL (3.8-4.9); Albumin/Globulin Ratio 2.26 Ratio (1.60-3.17); Alkaline Phosphatase 73 U/L (41-126); Anion Gap 12.20 mmol/L (4.00-12.00); BUN/Creat Ratio 21.62 Ratio (12.00-20.00); Blood Urea Nitrogen 17.3 mg/dL (9.0-27.0); Calcium 9.1 mg/dL (8.7-10.3); Carbon Dioxide 25.8 mmol/L (21.6-31.8); Chloride 102 mmol/L (96-109); Globulin 1.9 g/dL (1.6-3.3); Glucose 100 mg/dL (70-110); Potassium 4.6 mmol/L (3.5-5.5); Sodium 140 mmol/L (135-145); Total Protein 6.2 g/dL (6.2-8.2)
== END | disposition home or self-care (01) ==
LOC: LABWHC1 10:44
PROVIDERS: ATTEND Nurse Practitioner Family
DX: Z77.098 Contact with and (suspected) exposure to other hazardous, chiefly nonmedicinal, chemicals (principal)
CPT/HCPCS: 36415; 80053; 81596

== ENCOUNTER → 2025-04-13 | Outpatient (CLI) | payer MEDICARE, OTHER ==
--- NOTE | 2025-04-13 12:52 | US ---
EXAMINATION TYPE: US carotid duplex BILAT DATE OF EXAM: 04/13/2025 COMPARISON: NONE CLINICAL INDICATION: Male, 74 years old with history of R41.3 ,E78.2 AMNESIA, HYPERLIPIDEMIA; memory loss Additional History: .... TECHNIQUE: Grayscale, color Doppler and spectral Doppler evaluation of the bilateral carotid systems and vertebral arteries. Indirect Doppler criteria was utilized. FINDINGS: EXAM MEASUREMENTS: RIGHT: Peak Systolic Velocity (PSV) cm/sec ----- Right CCA: 58.8 ----- Right ICA: 81.7 ----- Right ECA: 107.3 ICA/CCA ratio: 1.4 RIGHT: End Diastole cm/sec ----- Right CCA: 18.3 ----- Right ICA: 25.9 ----- Right ECA: 18.3 LEFT: Peak Systolic Velocity (PSV) cm/sec ----- Left CCA: 76.6 ----- Left ICA: 70.7 ----- Left ECA: 60.1 ICA/CCA ratio: 0.9 LEFT: End Diastole cm/sec ----- Left CCA: 20.4 ----- Left ICA: 25.1 ----- Left ECA: 15.2 VERTEBRALS (direction of flow): Right Vertebral: Antegrade Left Vertebral: Antegrade Rhythm: Normal [employer] NOTES: Mild homogeneous plaque with no stenosis seen Color Doppler imaging shows patency with blood flow throughout the carotid artery. Spectral waveforms are within normal limits. IMPRESSION: No evidence for hemodynamically significant stenosis. Criteria for Assigning % of Stenosis / Diameter reduction (Estimation based on the indirect measurements of the internal carotid artery velocities (ICA PSV). 1. Normal (no stenosis)=ICA PSV < 180 cm/s: ratio < 2.0: ICA EDV<40 cm/s. 2. Less than 50% stenosis=ICA PSV < 180 cm/s: ratio < 2.0: ICA EDV<40 cm/s. 3. 50 to 69% stenosis=ICA PSV of 180 to 230 cm/s: ration 2.0 ? 4.0: ICA EDV 40-100 cm/s. PSV 125-180 cm/sec and ICA/CCA PSV Ratio ? 2.0 is also consistent with 50-69% stenosis 4. Greater than 70% stenosis to near occlusion= ICA PSV > 230 cm/s: ratio > 4.0: ICA EDV > 100 cm/s. 5. Near occlusion= ICA PSV velocities may be low or undetectable: variable ratio and ICA EDV. 6. Total occlusion=unable to detect flow. [facility], , 04/13/2025 12:50 PM
--- NOTE | 2025-04-13 13:06 | CT ---
EXAMINATION TYPE: CT brain wo con DATE OF EXAM: 04/13/2025 COMPARISON: CLINICAL INDICATION: Male, 74 years old with history of R41.3 ,E78.2 AMNESIA, HYPERLIPIDEMIA; PHH, A MNESIA, HYPERLIPIDEMIA TECHNIQUE: CT scan of the head is performed without contrast. CT DLP: [address] CTDI: mGy Automated exposure control for dose reduction was used. FINDINGS: There is no acute intracranial hemorrhage or midline shift identified. There is diffuse v entricular and sulcal prominence consistent with diffuse age-related cerebral atrophy. There is low- attenuation in the periventricular white matter consistent with chronic small vessel ischemic change. The globes are intact and the visualized sinuses are clear. IMPRESSION: No acute intracranial hemorrhage or midline shift. There is diffuse age-related cerebra l atrophy and chronic small vessel ischemic change noted. [facility], , 04/13/2025 1:04 PM
== END | disposition home or self-care (01) ==
LOC: RADUSWWP 12:03
PROVIDERS: ATTEND Family Medicine
DX: I67.82 Cerebral ischemia (principal); G31.1 Senile degeneration of brain, not elsewhere classified; R41.3 Other amnesia; E78.2 Mixed hyperlipidemia; I10 Essential (primary) hypertension
CPT/HCPCS: 70450; 93880

== ENCOUNTER → 2025-04-14 | Outpatient (CLI) | payer MEDICARE, OTHER ==
--- NOTE | 2025-04-14 12:57 | CA ---
Transthoracic Echo Report Name: Gab Goodman Age: 74 Gender: M : 1950 Exam Date: 04/14/2025 11:34 Exam Location: [facility] Ht (in): 70 Wt (lb): 220 Ordering Physician: Aurelio Ham MD Attending/Referring Phys: Jessica Quintana [facility] [employer]ber Inspector Maryam Boles RDCS Procedure CPT: Indications: I10 HYPERTENSION Cardiac Hx: Technical Quality: Fair Contrast 1: Total Dose (mL): Contrast 2: Total Dose (mL): MEASUREMENTS (Male / Female) Normal Values 2D ECHO LV Diastolic Diameter PLAX 4.4 cm 4.2 - 5.9 / 3.9 - 5.3 cm LV Systolic Diameter PLAX 2.8 cm IVS Diastolic Thickness 1.0 cm 0.6 - 1.0 / 0.6 - 0.9 cm LVPW Diastolic Thickness 1.4 cm 0.6 - 1.0 / 0.6 - 0.9 cm LV Relative Wall Thickness 0.6 RV Internal Dim ED PLAX 2.0 cm LA Systolic Diameter LX 4.4 cm 3.0 - 4.0 / 2.7 - 3.8 cm LV Diastolic Volume MOD BP 50.3 cm??? 67 - 155 / 56 - 104 cm??? LV Systolic Volume MOD BP 17.7 cm??? - 58 / 19 - 49 cm??? LV Ejection Fraction MOD BP 64.8 % >= 55 % LV Cardiac Index MOD BP 1014.0 cm???/min???m??? LV Diastolic Volume MOD 4C 47.1 cm??? LV Systolic Volume MOD 4C 15.1 cm??? LV Ejection Fraction MOD 4C 67.9 % LV Cardiac Index MOD 4C 994.5 cm???/min???m??? LV Diastolic Length 4C 7.5 cm LV Systolic Length 4C 5.5 cm LV Diastolic Volume MOD 2C 50.5 cm??? LV Systolic Volume MOD 2C 19.2 cm??? LV Ejection Fraction MOD 2C 62.0 % LV Cardiac Index MOD 2C 975.1 cm???/min???m??? LV Diastolic Length 2C 7.0 cm LV Systolic Length 2C 6.0 cm LA Volume 26.7 cm??? 18 - 58 / 22 - 52 cm??? LA Volume Index 11.9 cm???/m??? 16 - 28 cm???/m??? M-MODE Aortic Root Diameter MM 3.4 cm LA Systolic Diameter MM 3.4 cm LA Ao Ratio MM 1.0 AV Cusp Separation MM 1.8 cm DOPPLER MV Area PHT 2.6 cm??? Mitral E Point Velocity 73.2 cm/s Mitral A Point Velocity 88.5 cm/s Mitral E to A Ratio 0.8 MV Deceleration Time 292.8 ms TR Peak Velocity 208.8 cm/s TR Peak Gradient 17.4 mmHg FINDINGS Left Ventricle Left ventricular ejection fraction is estimated at 55-60 %. Normal Left ventricular size, systolic function with no obvious regional wall motion abnormalities.Mildly increased left ventricular wall thickness. Right Ventricle Normal right ventricular size and function. Right ventricular systolic pressure within normal limits. Right Atrium Mild right atrial dilatation. Left Atrium Mildly increased left atrial diameter. Mitral Valve Structurally normal mitral valve. Mild mitral regurgitation. No mitral stenosis. Aortic Valve Trileaflet aortic valve. No aortic valve stenosis or regurgitation. Tricuspid Valve Structurally normal tricuspid valve. Mild tricuspid regurgitation. No tricuspid stenosis. Pulmonic Valve Structurally normal pulmonic valve. No pulmonic stenosis. Trace pulmonic regurgitation. Pericardium No pericardial or pleural effusion. Aorta Normal size aortic root and proximal ascending aorta. CONCLUSIONS Normal left ventricular size and systolic function Mild mitral and tricuspid regurgitation with no evidence of pulmonary hypertension Previewed by: Dr. Ritchie Andrade MD (Electronically Signed) Final Date: 14 April 2025 12:56
== END | disposition home or self-care (01) ==
LOC: RADECHMAIN 11:01
PROVIDERS: ATTEND Family Medicine
DX: I08.1 Rheumatic disorders of both mitral and tricuspid valves (principal); I10 Essential (primary) hypertension
CPT/HCPCS: 93306